=== PATIENT | female | born 1965 | race Caucasian/White ===

== ENCOUNTER 2021-03-05 07:35 | Day surgery (SDC) | payer BC ==
[2021-03-02 08:47] VITALS: BMI 29.8
[2021-03-05] MEDS ORDERED: PROPOFOL 20 ML ONE ×3 (08:10)
[2021-03-05] MEDS ORDERED: LIDOCAINE HCL/PF 2% SDV 5ML VIAL ONE (08:10)
[2021-03-05 11:06] VITALS: TEMP 97.8
[2021-03-05 11:37] VITALS: BP 110/74; PULSE 65
== END 2021-03-05 11:30 | disposition home or self-care (01) ==
LOC: FASU-ENDO 07:35
PROVIDERS: ATTEND Internal Medicine Gastroenterology
PROC: 0DJD8ZZ Inspection of Lower Intestinal Tract, Via Natural or Artificial Opening Endoscopic (ICD-10-PCS; principal; 2021-03-05 10:25)
DX: Z12.11 Encounter for screening for malignant neoplasm of colon (principal)